=== PATIENT | male | born 1985 | race Hispanic/Latino ===

== ENCOUNTER 2016-10-13 11:26 | Emergency (ER) | payer OTHER ==
[2016-10-13 11:26] VITALS: BMI 20.9
[2016-10-13 11:52] VITALS: PULSE 74; RESP 18; TEMP 98.4
[2016-10-13 11:59] VITALS: O2SAT 98
--- NOTE | 2016-10-13 12:38 | ED PDOC ---
HPI: Chest Pain Time Seen by Provider: 10/13/16 11:42 Chief Complaint (Nursing): Shortness Of Breath History Per: Patient History/Exam Limitations: no limitations Onset/Duration Of Symptoms: Sudden Onset (yesterday) Current Symptoms Are (Timing): Still Present Severity: Moderate Front/Back of Body, Lg (Color): 1 - pain worse with movement and deep breath Quality: Sharp Associated Symptoms: denies: Nausea, Dyspnea, Diaphoresis, Syncope Modifying Factors: None Exacerbating Factors: Movement, Deep Breathing Alleviating Factors: None Past Medical History Reviewed: Historical Data, Nursing Documentation, Vital Signs Vital Signs: Last Vital Signs Temp 98.4 F 10/13/16 11:51 Pulse 74 10/13/16 11:51 Resp 18 10/13/16 11:51 BP 143/97 H 10/13/16 11:51 Pulse Ox 98 10/13/16 14:01 - Medical History PMH: Back Problems Denies: Chronic Kidney Disease - Surgical History Surgical History: Hernia Repair (right inguinal) - Family History Family History: States: Unknown Family Hx - Living Arrangements Living Arrangements: With Family - Social History Current smoker - smoking cessation education provided: No - Immunization History Hx Tetanus Toxoid Vaccination: No (UTD (given one year ago)) Hx Influenza Vaccination: No Hx Pneumococcal Vaccination: No - Home Medications Home Medications: Ambulatory Orders Medication Instructions Recorded Ibuprofen [Motrin] 600 mg PO Q6 PRN #20 tab 11/21/13 Acetaminophen with Codeine 1 tab PO Q6 PRN #20 tab 06/01/14 [Tylenol with Codeine No. 3 300 mg-30 mg] Prednisone 50 mg PO DAILY #6 tab 06/01/14 Tizanidine Hydrochloride 4 mg PO Q6 PRN #20 tab 06/01/14 [Tizanidine HCl] Cyclobenzaprine HCl [Flexeril] 10 mg PO Q8 #15 tab 08/17/14 oxyCODONE/Acetaminophen [Percocet 1 ea PO Q6H PRN #15 tab 08/17/14 5/325 mg Tab] Oxycodone HCl/Acetaminophen 1 tab PO Q8H #10 tab 08/24/15 [Percocet 325 mg-5 mg] Prednisone 10 mg PO TID #15 tab 01/02/15 Oxycodone HCl/Acetaminophen 1 tab PO Q6H PRN #5 tab 08/21/15 [Percocet 325 mg-5 mg] oxyCODONE/Acetaminophen [Percocet 1 tab PO Q6H PRN #5 tab 01/22/16 5/325 mg Tab] Ketorolac Tromethamine [Toradol] 10 mg PO Q6H PRN #19 tab 03/10/16 Lidocaine 5% [Lidoderm] 1 ea TD BID #20 patch 03/10/16 Naproxen 500 mg PO BID #20 tab 04/06/16 Penicillin VK [Pen-Vee K] 500 mg PO BID #14 tab 07/06/16 oxyCODONE/Acetaminophen [Percocet 1 ea PO Q6 PRN #5 tab 07/06/16 5/325 mg Tab] Cyclobenzaprine [Flexeril] 5 mg PO TID PRN #12 tab 10/13/16 - Allergies Allergies/Adverse Reactions: Allergies Allergy/AdvReac Type Severity Reaction Status Date / Time No Known Allergies Allergy Verified 10/13/16 11:49 KISHOR Risk Score for UA/NSTEMI - KISHOR Risk Score Age > 64: NO 3 or more CAD Risk Factors: NO Known CAD (Stenosis greater than 50%): NO Aspirin use in past 7 days: NO Severe Angina: NO EKG ST changes greater than 0.5mm: NO Positive Cardiac Marker: NO KISHOR Score: 0 Risk %: 5% Review of Systems ROS Statement: Except As Marked, All Systems Reviewed And Found Negative Constitutional: Negative for: Fever, Chills Cardiovascular: Positive for: Chest Pain. Negative for: Palpitations, Orthopnea , Paroxysmal Noc. Dyspnea, Edema, Light Headedness Respiratory: Positive for: Shortness of Breath. Negative for: Cough, SOB with Exertion, Pleuritic Pain, Sputum Gastrointestinal: Negative for: Nausea, Vomiting, Abdominal Pain, Diarrhea Musculoskeletal: Negative for: Neck Pain Skin: Negative for: Rash Neurological: Negative for: Weakness, Numbness, Headache Physical Exam - Reviewed Nursing Documentation Reviewed: Yes Vital Signs Reviewed: Yes - Physical Exam Appears: Positive for: No Acute Distress, Uncomfortable. Negative for: In Acute Distress Head Exam: Positive for: ATRAUMATIC, NORMAL INSPECTION, NORMOCEPHALIC Eye Exam: Positive for: Normal appearance, EOMI, PERRL Neck: Positive for: Normal, Painless ROM, Supple. Negative for: Decreased ROM, Limited ROM, Trachea Midline, Pain On Movement Of Neck Cardiovascular/Chest: Positive for: Regular Rate, Rhythm. Negative for: Chest Non Tender (tenderness in right upper chest palpation totally reproduces the complaints), Edema, Gallop, Murmur, Bradycardia, Tachycardia Respiratory: Positive for: Normal Breath Sounds. Negative for: Decreased Breath Sounds, Accessory Muscle Use, Crackles, Rales, Rhonchi, Stridor, Wheezing , Respiratory Distress, Plerual Rub Pulses-Radial (L): 2+ Pulses-Radial (R): 2+ Gastrointestinal/Abdominal: Positive for: Normal Exam, Bowel Sounds, Soft. Negative for: Tenderness Back: Positive for: Normal Inspection. Negative for: L CVA Tenderness, R CVA Tenderness, Vertebral Tenderness Extremity: Positive for: Normal ROM. 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 Negative for: Motor/Sensory Deficits - Laboratory Results Result Diagrams: 10/13/16 12:30 10/13/16 12:30 - ECG ECG: Positive for: Interpreted By Al ECG Rhythm: Positive for: Normal QRS, Normal ST Segment, Sinus Rhythm. Negative for: ST/T Changes Interpretation Of Abn EK no evidence of ischemia O2 Sat by Pulse Oximetry: 98 Pulse Ox Interpretation: Normal - Radiology X-Ray: Interpreted by Al X-Ray Interpretation: No Acute Disease - Progress ED Course And Treament: advise nsaids and flexeril. advise not to drive on flexeril. leaves ambulatory and in good spirits. Re-evaluation Time: 14:02 Condition: Improved Disposition - Clinical Impression Clinical Impression: Chest wall pain - Patient ED Disposition Is Patient to be Admitted: No Counseled Patient/Family Regarding: Studies Performed, Diagnosis, Need For Followup, Rx Given - Disposition Referrals: [facility] [Outside] (2 to 3 days) Disposition: Routine/Home Disposition Time: 14:02 Condition: GOOD Prescriptions: Cyclobenzaprine [Flexeril] 5 mg PO TID PRN #12 tab PRN Reason: Pain, Moderate (4-7) Instructions: Chest Wall Pain (ED)
[2016-10-13 12:52] LABS: BASO % 0.7 % (0.0-2.0); EOS # 0.1 K/uL (0.0-0.7); EOS % 2.2 % (0.0-4.0); HEMATOCRIT 43.3 % (35.0-51.0); LYMPH % 18.3 % (20.0-40.0); MEAN CORPUSCULAR HEMOGLOBIN 34.6 pg (27.0-31.0); MEAN CORPUSCULAR HGB CONC 34.2 g/dL (33.0-37.0); MEAN PLATELET VOLUME 8.6 fl (7.2-11.7); MONO # 0.7 K/uL (0.0-0.8); MONO % 12.7 % (0.0-10.0); NEUT # 3.5 K/uL (1.8-7.0); NEUT % 66.1 % (50.0-75.0); RED CELL DISTRIBUTION WIDTH 13.9 % (11.5-14.5); WHITE BLOOD COUNT 5.3 K/uL (4.8-10.8)
[2016-10-13 12:56] LABS: ALB/GLOB RATIO 1.7 (1.0-2.1); ALKALINE PHOSPHATASE 68 U/L (38-126); ALT/SGPT 71 U/L (21-72); AST/SGOT 39 U/L (17-59); BILIRUBIN,TOTAL 0.6 mg/dl (0.2-1.3); BLOOD UREA NITROGEN 12 mg/dl (9-20); CALCIUM 9.7 mg/dL (8.4-10.2); CARBON DIOXIDE 25 mmol/L (22-30); CHLORIDE 103 mmol/L (98-107); GFR AFRICAN-AMERICAN > 60; GLUCOSE,RANDOM 89 mg/dL (75-110); POTASSIUM 4.4 MMOL/L (3.6-5.0); SODIUM 137 mmol/l (132-148); TOTAL PROTEIN 7.3 G/DL (6.3-8.2)
[2016-10-13 13:30] LABS: PARTIAL THROMBOPLASTIN TIME 32.4 Seconds (25.6-37.1)
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
[2016-10-13 14:10] VITALS: BP 138/82
--- NOTE | 2016-10-15 09:30 | CARD ---
APPROVED REPORT EKG Measurement Heart [id number] [id number] <Conclusion> Normal sinus rhythm Voltage criteria for left ventricular hypertrophy Abnormal ECG
== END 2016-10-13 14:11 | disposition home or self-care (01) ==
LOC: H.ER 11:26
DX: R07.89 Other chest pain (principal)

== ENCOUNTER 2016-10-20 05:30 | Emergency (ER) | payer OTHER ==
[2016-10-20 05:30] VITALS: BMI 20.9
[2016-10-20 05:57] VITALS: TEMP 97.7; O2SAT 98
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
[2016-10-20 06:46] LABS: HEMATOCRIT 45.1 % (35.0-51.0); MEAN CELL VOLUME 100.8 fl (80.0-94.0); MEAN CORPUSCULAR HEMOGLOBIN 34.1 pg (27.0-31.0); MEAN CORPUSCULAR HGB CONC 33.8 g/dL (33.0-37.0); RED CELL DISTRIBUTION WIDTH 13.8 % (11.5-14.5); WHITE BLOOD COUNT 5.4 K/uL (4.8-10.8)
[2016-10-20 07:00] LABS: ALB/GLOB RATIO 1.8 (1.0-2.1); ALKALINE PHOSPHATASE 65 U/L (38-126); ALT/SGPT 57 U/L (21-72); AST/SGOT 43 U/L (17-59); BILIRUBIN,TOTAL 0.4 mg/dl (0.2-1.3); BLOOD UREA NITROGEN 12 mg/dl (9-20); CALCIUM 9.5 mg/dL (8.4-10.2); CARBON DIOXIDE 20 mmol/L (22-30); CHLORIDE 106 mmol/L (98-107); GFR AFRICAN-AMERICAN > 60; GLUCOSE,RANDOM 120 mg/dL (75-110); POTASSIUM 4.1 MMOL/L (3.6-5.0); SODIUM 140 mmol/l (132-148); TOTAL PROTEIN 7.8 G/DL (6.3-8.2)
--- NOTE | 2016-10-20 07:47 | ED PDOC ---
- Laboratory Results Result Diagrams: 10/20/16 06:40 10/20/16 06:40 Interpretation Of Abn Labs: 29 etoh - ECG ECG: Positive for: Interpreted By Me, Viewed By Me ECG Rhythm: Positive for: Normal QRS, Normal ST Segment, Sinus Rhythm O2 Sat by Pulse Oximetry: 98 (rA) Pulse Ox Interpretation: Normal - Progress ED Course And Treament: 829: Stable. AAOx3. Pain free. Has cough as well. X-ray from last week neg. Pt. to fu with pcp. Tolerated PO. Medical Decision Making Medical Decision Making: Receiving Sign Out: Pt is a 31yo male, presents to ED for chest pain for the past week. pt signed over to me by Dr. Dasilva at 0700 pending labs and imaging. Scribe Attestation: Documented by Shae Skinner acting as a scribe for Arslan Vieira MD. Provider Attestation: All medical record entries made by the Scribe were at my direction and personally dictated by me. I have reviewed the chart and agree that the record accurately reflects my personal performance of the history, physical exam, medical decision making, and the department course for this patient. I have also personally directed, reviewed, and agree with the discharge instructions and disposition. Disposition - Clinical Impression Clinical Impression: Chest pain, Cough - POA Present On Arrival: None - Disposition Referrals: [facility] [Outside] - 10/21/16 Disposition: Routine/Home Disposition Time: 08:30 Condition: STABLE Additional Instructions: Return if not better in 3 days. Prescriptions: Ibuprofen [Motrin] 600 mg PO TID 7 Days Instructions: Chest Pain (ED), Acute Cough (ED)
[2016-10-20 08:45] VITALS: BP 130/70; PULSE 80; RESP 18
--- NOTE | 2016-10-20 14:52 | CARD ---
APPROVED REPORT EKG Measurement Heart [id number] SD [id number] <Conclusion> Sinus rhythm with short SD Otherwise normal ECG
== END 2016-10-20 08:40 | disposition home or self-care (01) ==
LOC: H.ER 05:30
DX: R07.89 Other chest pain (principal); R05 Cough

== ENCOUNTER 2017-03-30 06:32 | Emergency (ER) | payer OTHER ==
[2017-03-30 06:41] VITALS: BMI 21.9
[2017-03-30 06:43] VITALS: BP 134/65; PULSE 82; RESP 18; TEMP 96.8; O2SAT 98
[2017-03-30] MEDS ORDERED: Lidocaine 1% Inj (20ml) IJ ONE (07:13)
--- NOTE | 2017-03-30 08:05 | ED PDOC ---
HPI: Skin/Bite Injury Time Seen by Provider: 03/30/17 07:04 Chief Complaint (Nursing): ENT Problem Chief Complaint (Provider): Left Ear Pain History Per: Patient History/Exam Limitations: no limitations Onset/Duration Of Symptoms: Persistent (Several wks) Current Symptoms Are (Timing): Still Present Additional Complaint(s): Ki Roberts is a 32 year old male that presents to the ED with a chief complaint of left earlobe swelling that has been ongoing for the past several weeks. Patient reports that the swelling has been worsening over the course of the past several weeks, and that it his earlobe has now become painful and red. He states that he has had lumps present to his left earlobe before, but that they have never been painful. Patient additionally reports that he has his left earlobe pierced, but that he hasn't worn an earring in it in more than a year. He denies any other complaints. Past Medical History Reviewed: Historical Data, Nursing Documentation, Vital Signs Vital Signs: Last Vital Signs Temp 96.8 F L 03/30/17 06:41 Pulse 82 03/30/17 06:41 Resp 18 03/30/17 06:41 BP 134/65 03/30/17 06:41 Pulse Ox 98 03/30/17 08:40 - Medical History PMH: Back Problems Denies: Chronic Kidney Disease - Surgical History Surgical History: Hernia Repair (right inguinal) - Family History Family History: States: Unknown Family Hx - Social History Current smoker - smoking cessation education provided: Yes - Immunization History Hx Tetanus Toxoid Vaccination: No (UTD (given one year ago)) Hx Influenza Vaccination: No Hx Pneumococcal Vaccination: No - Home Medications Home Medications: Ambulatory Orders Medication Instructions Recorded Ibuprofen [Motrin] 600 mg PO Q6 PRN #20 tab 11/21/13 Acetaminophen with Codeine 1 tab PO Q6 PRN #20 tab 06/01/14 [Tylenol with Codeine No. 3 300 mg-30 mg] Prednisone 50 mg PO DAILY #6 tab 06/01/14 Tizanidine Hydrochloride 4 mg PO Q6 PRN #20 tab 06/01/14 [Tizanidine HCl] Cyclobenzaprine HCl [Flexeril] 10 mg PO Q8 #15 tab 08/17/14 oxyCODONE/Acetaminophen [Percocet 1 ea PO Q6H PRN #15 tab 08/17/14 5/325 mg Tab] Oxycodone HCl/Acetaminophen 1 tab PO Q8H #10 tab 01/02/15 [Percocet 325 mg-5 mg] Prednisone 10 mg PO TID #15 tab 01/02/15 Oxycodone HCl/Acetaminophen 1 tab PO Q6H PRN #5 tab 08/21/15 [Percocet 325 mg-5 mg] oxyCODONE/Acetaminophen [Percocet 1 tab PO Q6H PRN #5 tab 01/22/16 5/325 mg Tab] Ketorolac Tromethamine [Toradol] 10 mg PO Q6H PRN #19 tab 03/10/16 Lidocaine 5% [Lidoderm] 1 ea TD BID #20 patch 03/10/16 Naproxen 500 mg PO BID #20 tab 04/06/16 Penicillin VK [Pen-Vee K] 500 mg PO BID #14 tab 07/06/16 oxyCODONE/Acetaminophen [Percocet 1 ea PO Q6 PRN #5 tab 07/06/16 5/325 mg Tab] Cyclobenzaprine [Flexeril] 5 mg PO TID PRN #12 tab 10/13/16 Ibuprofen [Motrin] 600 mg PO TID 7 Days tab 10/20/16 Clindamycin [Cleocin] 150 mg PO TID #15 cap 03/30/17 Ibuprofen [Motrin Tab] 600 mg PO Q6 PRN #15 tab 03/30/17 - Allergies Allergies/Adverse Reactions: Allergies Allergy/AdvReac Type Severity Reaction Status Date / Time No Known Allergies Allergy Verified 03/30/17 06:41 Review of Systems ENT: Positive for: Ear Pain (Left earlobe) Physical Exam - Reviewed Nursing Documentation Reviewed: Yes Vital Signs Reviewed: Yes - Physical Exam Appears: Positive for: Non-toxic, No Acute Distress Head Exam: Positive for: ATRAUMATIC, NORMOCEPHALIC Skin: Positive for: Normal Color, Warm Eye Exam: Positive for: Normal appearance, EOMI, PERRL ENT: Positive for: Other (Fluctuant mass on left earlobe, approximately 1.5 cm. ). Negative for: Normal ENT Inspection Neurologic/Psych: Positive for: Alert, Oriented. Negative for: Motor/Sensory Deficits - ECG O2 Sat by Pulse Oximetry: 98 (RA) Pulse Ox Interpretation: Normal Medical Decision Making Medical Decision Making: Impression: Cyst on Left Earlobe Plan: * I&D of infected cyst * Explained to patient that he may need a formal marsupialization. 8:38 Patient tolerated procedure well with no immediate complications. Advised patient to return to ED, PMD, or clinic tomorrow for wound check and packing removal. Clinical Impression: Infected Cyst of Left Ear, Incision and Drainage Scribe Attestation: Documented by Belen Meyer, acting as a scribe for Miky Almaraz III, DO. Provider Scribe Attestation: All medical record entries made by the Scribe were at my direction and personally dictated by me. I have reviewed the chart and agree that the record accurately reflects my personal performance of the history, physical exam, medical decision making, and the department course for this patient. I have also personally directed, reviewed, and agree with the discharge instructions and disposition. Disposition - Clinical Impression Clinical Impression: Infected cyst of skin, Encounter for incision and drainage procedure - Patient ED Disposition Is Patient to be Admitted: No - Disposition Referrals: Saúl Reece MD [Staff Provider] - Disposition: Routine/Home Disposition Time: 08:38 Condition: STABLE Additional Instructions: Keep dressing intact, return to ER/ Primary doctor/ clinic/ surgeon in 24-48hrs for wound check and packing removal. Prescriptions: Clindamycin [Cleocin] 150 mg PO TID #15 cap Ibuprofen [Motrin Tab] 600 mg PO Q6 PRN #15 tab PRN Reason: Pain, Moderate (4-7) Instructions: Abscess Incision and Drainage (ED), Cyst (ED) Forms: [employer] (Bulgarian) Procedures - Incision and Drainage Site: left earlobe Blade Size: 11 Progress: I&D of left ear, infected cyst. Verbal consent obtained. Explained to patient that there will be a scar behind the left earlobe and that he may need a more extensive procedure if it reoccurs. Injected 4 ml lidocaine 1%, and with an 11 blade made a 1 cm incision with copious return on infectious sebaceous material. Loculations probed and broken, irrigated with sterile saline, packing placed. Pressure bandage applied. Patient tolerated procedure well with no immediate complications. Advised patient to return to ED, PMD, or clinic tomorrow for wound check and packing removal.
== END 2017-03-30 08:48 | disposition home or self-care (01) ==
LOC: H.ER 06:32
DX: L72.3 Sebaceous cyst (principal)

== ENCOUNTER 2018-02-23 21:27 | Emergency (ER) | payer MEDICAID, OTHER ==
[2018-02-23 21:27] VITALS: BMI 21.9
[2018-02-23 21:47] VITALS: RESP 16
[2018-02-23] MEDS ORDERED: Oxycodone/Acetaminophen 5/325 mg Tab PO STA (22:31)
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
[2018-02-24 01:28] VITALS: BP 118/79; PULSE 72; TEMP 98.5
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
[2018-02-25 00:23] VITALS: O2SAT 100
== END 2018-02-24 01:18 | disposition left against medical advice (07) ==
LOC: H.ER 21:27
DX: S02.600A Fracture of unspecified part of body of mandible, unspecified side, initial encounter for closed fracture (principal); S09.90XA Unspecified injury of head, initial encounter; Y04.0XXA Assault by unarmed brawl or fight, initial encounter; Y92.89 Other specified places as the place of occurrence of the external cause; G93.0 Cerebral cysts

== ENCOUNTER 2018-08-18 19:37 | Emergency (ER) | payer MEDICAID ==
[2018-08-18 19:37] VITALS: BMI 21.9
[2018-08-18 20:09] VITALS: TEMP 98.6
--- NOTE | 2018-08-18 20:48 | ED PDOC ---
Lower Extremity Pain/Injury Time Seen by Provider: 08/18/18 20:20 Chief Complaint (Nursing): Lower Extremity Problem/Injury Chief Complaint (Provider): fall, right leg pain History Per: Patient History/Exam Limitations: no limitations Onset/Duration Of Symptoms: Hrs (2) Current Symptoms Are (Timing): Still Present Additional Complaint(s): 33 y/o male ambulates to ED for evaluation of right leg pain x 2 hours. Patient states he slipped while going down metal steps and landed directly on right hip, and then slid down approximately 7 steps before banging right knee. Patient reports pain worse with weight-bearing. Denies numbness/weakness right lower extremity, back pain, bowel/bladder incontinence. No medication taken for relief thus far Past Medical History Reviewed: Historical Data, Nursing Documentation, Vital Signs Vital Signs: Last Vital Signs Temp 98.6 F 08/18/18 20:06 Pulse Resp BP Pulse Ox - Medical History PMH: Back Problems Denies: Chronic Kidney Disease - Surgical History Surgical History: Hernia Repair (right inguinal) - Family History Family History: States: Unknown Family Hx - Immunization History Hx Tetanus Toxoid Vaccination: No (UTD (given one year ago)) Hx Influenza Vaccination: No Hx Pneumococcal Vaccination: No - Home Medications Home Medications: Ambulatory Orders Medication Instructions Recorded Ibuprofen [Motrin] 600 mg PO Q6 PRN #20 tab 11/21/13 Acetaminophen with Codeine 1 tab PO Q6 PRN #20 tab 06/01/14 [Tylenol with Codeine No. 3 300 mg-30 mg] Prednisone 50 mg PO DAILY #6 tab 06/01/14 Tizanidine Hydrochloride 4 mg PO Q6 PRN #20 tab 06/01/14 [Tizanidine HCl] Cyclobenzaprine HCl [Flexeril] 10 mg PO Q8 #15 tab 08/17/14 oxyCODONE/Acetaminophen [Percocet 1 ea PO Q6H PRN #15 tab 08/17/14 5/325 mg Tab] Oxycodone HCl/Acetaminophen 1 tab PO Q8H #10 tab 01/02/15 [Percocet 325 mg-5 mg] Prednisone 10 mg PO TID #15 tab 01/02/15 Oxycodone HCl/Acetaminophen 1 tab PO Q6H PRN #5 tab 08/21/15 [Percocet 325 mg-5 mg] oxyCODONE/Acetaminophen [Percocet 1 tab PO Q6H PRN #5 tab 01/22/16 5/325 mg Tab] Ketorolac Tromethamine [Toradol] 10 mg PO Q6H PRN #19 tab 03/10/16 Lidocaine 5% [Lidoderm] 1 ea TD BID #20 patch 03/10/16 Naproxen 500 mg PO BID #20 tab 04/06/16 Penicillin VK [Penicillin VK Tab] 500 mg PO BID #14 tab 07/06/16 oxyCODONE/Acetaminophen [Percocet 1 ea PO Q6 PRN #5 tab 07/06/16 5/325 mg Tab] Cyclobenzaprine [Flexeril] 5 mg PO TID PRN #12 tab 10/13/16 Ibuprofen [Motrin] 600 mg PO TID 7 Days tab 10/20/16 Clindamycin [Cleocin] 150 mg PO TID #15 cap 03/30/17 Ibuprofen [Motrin Tab] 600 mg PO Q6 PRN #15 tab 03/30/17 Naproxen [Naprosyn] 500 mg PO Q12 PRN #20 tablet 08/18/18 - Allergies Allergies/Adverse Reactions: Allergies Allergy/AdvReac Type Severity Reaction Status Date / Time No Known Allergies Allergy Verified 08/18/18 20:09 Review of Systems ROS Statement: Except As Marked, All Systems Reviewed And Found Negative Musculoskeletal: Positive for: Leg Pain (right) Physical Exam - Reviewed Nursing Documentation Reviewed: Yes Vital Signs Reviewed: Yes - Physical Exam Appears: Positive for: Well, Non-toxic, Uncomfortable Head Exam: Positive for: ATRAUMATIC, NORMAL INSPECTION, NORMOCEPHALIC Pulses-Dorsalis Pedis (L): 2+ Pulses-Dorsalis Pedis (R): 2+ Pulses-Post. Tibialis (L): 2+ Pulses-Post. Tibialis (R): 2+ Extremity: Positive for: Normal ROM, Swelling (ecchymosis/edema right lateral proximal femur/hip area; tender to palpate. FROM, pain lateral right knee with flexion. Distal NV/motor intact. ) Neurological/Psych: Positive for: Awake, Alert, Oriented (x3) - Other Rad xray right hip X-Ray: Viewed By Me X-Ray Interpretation: no acute findings xray right femur X-Ray: Viewed By Me X-Ray Interpretation: no acute findings xray right knee X-Ray: Viewed By Me X-Ray Interpretation: no acute findings - Progress ED Course And Treament: -xray right hip -xray right femur -xray right knee -Toradol IM -tramadol PO Patient educated on findings, AMELIA wrap applied to right knee (patient declines crutches) Advised RICE Rx Naproxen provided Follow up PMD/ortho Return precautions given Disposition - Clinical Impression Clinical Impression: Contusion of right hip, Right knee injury - Patient ED Disposition Is Patient to be Admitted: No Counseled Patient/Family Regarding: Studies Performed, Diagnosis, Need For Followup, Rx Given - Disposition Referrals: Hardy Lennon MD [Staff Provider] - Disposition: Routine/Home Disposition Time: 22:15 Condition: IMPROVED Prescriptions: Naproxen [Naprosyn] 500 mg PO Q12 PRN #20 tablet PRN Reason: Pain, Moderate (4-7) Instructions: Hip Pointer, Knee Pain Forms: [employer] (Dominican)
[2018-08-18 22:43] VITALS: BP 127/83; PULSE 79; RESP 15; O2SAT 100
--- NOTE | 2018-08-19 15:04 | RAD ---
PROCEDURE: Right Hip Radiographs. HISTORY: fall, lateral pain COMPARISON: None. TECHNIQUE: 2 views obtained. FINDINGS: BONES: Bone alignment and mineralization are normal. There is no acute displaced fracture or bone destruction. JOINTS: Normal. SOFT TISSUES: Normal. OTHER FINDINGS: None. IMPRESSION: No acute displaced fracture or dislocation.Please note occult fractures cannot be excluded on plain radiographs. If there is a persistent clinical concern, an MRI of the hip may be performed for further evaluation.
--- NOTE | 2018-08-19 15:05 | RAD ---
Date of service: 08/18/2018 PROCEDURE: Right Femur Radiographs. HISTORY: fall, lateral pain COMPARISON: None. TECHNIQUE: AP and Lateral Radiographs of the right femur. 4 views obtained. FINDINGS: FEMUR: Bone alignment and mineralization are normal. There is no acute displaced fracture or bone destruction. SOFT TISSUES: Normal. OTHER FINDINGS: None. IMPRESSION: No acute displaced fracture.Please note occult fractures cannot be excluded on plain radiographs. If there is a persistent clinical concern, an MRI without contrast may be performed for further evaluation.
--- NOTE | 2018-08-19 15:06 | RAD ---
Date of service: 08/18/2018 PROCEDURE: Right Knee Radiographs. HISTORY: fall, lateral pain COMPARISON: 04/06/2016. TECHNIQUE: 3 views obtained. FINDINGS: BONES: Bone alignment and mineralization are normal. There is no acute displaced fracture or bone destruction. JOINTS: Normal. No osteoarthritis. JOINT EFFUSION: There is a small suprapatellar joint effusion. OTHER FINDINGS: None. IMPRESSION: No acute displaced fracture or dislocation. Small suprapatellar joint effusion.
== END 2018-08-18 22:43 | disposition home or self-care (01) ==
LOC: H.ER 19:37
DX: S70.01XA Contusion of right hip, initial encounter (principal); S89.91XA Unspecified injury of right lower leg, initial encounter; W10.9XXA Fall (on) (from) unspecified stairs and steps, initial encounter
CPT/HCPCS: 73502; 73552; 73562; 96372; 99285; J1885